=== PATIENT | female | born 1965 | race Caucasian/White ===

== ENCOUNTER → 2017-03-18 | Outpatient (CLI) | payer BC ==
--- NOTE | 2017-03-18 15:49 | DIAGNOSTIC IMAGING REPORT ---
SOFT TIS HEAD/NECK-THYROID HISTORY: Thyroid nodularity E04.2 Multiple thyroid [id number] COMPARISON: 09/28/2013 FINDINGS: Right lobe: Maximum linear dimension 7.5 cm. Multinodular multicystic appearance. Largest nodule of the mid pole measures 3.0 cm. This is similar as compared to the prior study. Left lobe: Maximum linear dimension 6.3 cm. Several nodules measuring up to 2.6 x 1.8 x 1.3 cm. This is unchanged from the prior study. Isthmus: No nodules. IMPRESSION: Multicystic multinodular thyroid essentially unchanged from prior study of 09/28/2013 The above report was generated using voice recognition software. It may contain grammatical, syntax or spelling errors. Electronically signed by: Norberto Lang M.D. 03/18/2017 3:48 PM Dictated Date/Time: 03/18/2017 3:45 PM
== END | disposition home or self-care (01) ==
LOC: C.ULTR 15:03
PROVIDERS: ATTEND Physician Assistant
DX: E04.2 Nontoxic multinodular goiter (principal)